=== PATIENT | male | born 1970 | race Caucasian/White ===

== ENCOUNTER 2019-02-19 08:28 | Emergency (ER) | payer OTHER, BC, SELFPAY ==
--- NOTE | 2019-02-19 08:41 | ED.GENADUL_ITS ---
Discharge Plan Disposition Patient Disposition: HOME Condition: Stable Discharge Details Chief Complaint: Orthopedic Clinical Impression: Right ankle sprain, Right foot sprain Primary Care Provider: None,None ED Provider: Samantha Pomap Discharge Instructions Instructions: Ankle Sprain (ED), Foot Sprain (ED) Additional Instructions: Alternate tylenol and motrin as needed and directed for pain. Rest, ice, and elevate right ankle is much as possible. Follow-up with your primary care doctor next week for reevaluation and for referral to orthopedics as needed. Return to the emergency department if you develop any worsening or new concerning symptoms. Stand Alone Forms: Work Release Discharge Data Discharge Physician: Samantha Pompa Medical Decision Making 48-year-old male presents with right ankle and foot pain after he dropped a piece of rebar metal on his right ankle and foot yesterday. Has not taken any medication for pain. Right lateral malleolus edema and tenderness to palpation. No bony deformity. Neurovascularly intact. We will give a dose of ibuprofen and sent for right ankle and foot x-ray. Right ankle and foot x-rays negative. Patient placed in ankle stirrup splint. He declined crutches. He is advised to rest, ice, elevate, alternate Tylenol and Motrin. He is advised to follow-up with his primary care doctor for reevaluation and to return here with any concerns. Medical Records Medical records reviewed: Yes I reviewed the patient's medical records. Imaging Data Radiologic Study: Radiologist's impression: RIGHT FOOT:: No fracture or dislocation is seen. A plantar calcaneal spur is seen. IMPRESSION: No acute abnormality. RIGHT ANKLE: No fracture or ankle mortise widening is seen. Talar dome appears intact. There is a small plantar calcaneal spur. IMPRESSION: Negative right ankle. HPI General Mode of arrival: ambulatory . Date/Time Provider Initiated Documentation: 02/19/19 08:40 . Limitations to Documentation: no limitations . Information obtained by: patient . HPI Narrative: Pt is a 48yo M who presents to the ED w/ a c/o R ankle and foot pain and swelling since yesterday since dropping a piece of rebarb metal on his R ankle and foot. He is having pain with weightbearing. He has not taken any medication for pain. He denies any pain in his right leg, knee or hip. General Stated Complaint: Orthopedic RNO: 4 Review of Systems Review of Systems ROS Unobtainable: All systems reviewed & are unremarkable except as noted in HPI and below PFSH Medical History No significant past medical history (Acute) Surgical History No significant past surgical history (Acute) Social History (Updated 02/19/19 @ 08:54 by Samantha Pompa DO) Smoking/Tobacco Use Status: Current every day Alcohol Intake: never Drug use: Never Do you feel safe at home: Yes Do you feel safe in your relationship?: Yes Exam Const General: cooperative, healthy appearing and no acute distress HENMT Head: normal to inspection Mouth: oral mucosae normal Eyes General: appearance normal, both eyes and all related structures Neck Neck: normal visual inspection Resp Effort & Inspection: normal respiratory effort and able to speak in complete sentences Cardio Rate: regular rate Skin General skin exam: no rashes or lesions noted Neuro General: alert, awake and oriented x3 Motor: muscle tone normal throughout Extrem Other: Right lateral malleolus edema and tenderness to palpation. There is also some tenderness to palpation and edema along the dorsal lateral foot. No right fifth metatarsal tenderness. Right DP/PT pulses intact. Minimal skin erythema and scaling consistent with tinea pedis near toes. There is no bony deformity, erythema. Psych Appearance: grossly normal Affect: normal affect Course Vital Signs Vital signs: Pain Level 6 02/19/19 08:38
[2019-02-19 08:56] VITALS: BP 138/81; PULSE 98; TEMP 36.4
[2019-02-19] MEDS: Ibuprofen 600 MG TAB PO (09:06)
--- NOTE | 2019-02-19 09:20 | DI.RAD_ITS ---
SYMPTOM/DIAGNOSIS: S/P PIECE OF STEEL FELL ON RIGHT FOOT, R/O FX RIGHT ANKLE: No fracture or ankle mortise widening is seen. Talar dome appears intact. There is a small plantar calcaneal spur. IMPRESSION: Negative right ankle.
--- NOTE | 2019-02-19 09:20 | DI.RAD_ITS ---
SYMPTOM/DIAGNOSIS: S/P PIECE OF STEEL FELL ON RT FOOT, R/O FX RIGHT FOOT:: No fracture or dislocation is seen. A plantar calcaneal spur is seen. IMPRESSION: No acute abnormality.
--- NOTE | 2019-02-19 10:19 | NUR.NOTE ---
splint applied to affected ankle prior to dc Nursing Note:
== END 2019-02-19 10:13 | disposition home or self-care (01) ==
PROVIDERS: Emergency Provider Physician Assistant
DX: S93.601A Unspecified sprain of right foot, initial encounter (principal); S93.401A Sprain of unspecified ligament of right ankle, initial encounter; W20.8XXA Other cause of strike by thrown, projected or falling object, initial encounter
CPT/HCPCS: 29515; 99284; 73610; 73630; 99283; L4350